=== PATIENT | female | born 1960 | race Caucasian/White ===

== ENCOUNTER 2020-02-25 21:29 | Emergency (ER) | payer OTHER ==
--- NOTE | 2020-02-25 22:35 | EDM.PDOC ---
ED HPI GENERAL MEDICAL PROBLEM - General Chief Complaint: Lower Extremity Injury/Pain Stated Complaint: FELL DOWN STEPS INJURING LEFT ANKLE Time Seen by Provider: 02/25/20 22:21 Source of Information: Reports: Patient, RN Notes Reviewed History Limitations: Reports: No Limitations - History of Present Illness INITIAL COMMENTS - FREE TEXT/NARRATIVE: Patient is a 59-year-old female who presents to the ED for evaluation of a left foot injury. Patient notes that she was going down the steps at her home, when she ended up getting the tip of her shoe caught on the carpet, this resulted in her falling down 2 or 3 steps. She notes that she thinks she hyperextended her left foot. This happened roughly 1 hour ago. Patient is complaining of severe pain to the midfoot portion. She denies any pain in her ankle, and states it hurts worse when she dorsiflexes her foot. She denies any sort of numbness or tingling into the extremity, and still can move toes in all range of motion without difficulty. She did take ibuprofen prior to coming to the ER, and states that this did help with the pain. She denies any other sick-like symptoms, fever/chills, nausea/vomiting/diarrhea, chest pain or shortness of breath. She does note that she has a previous sprain to this ankle, for which she was treating this with an ankle brace. Left Ankle Pain Score (Numeric/FACES): 7 - Related Data Allergies Allergy/AdvReac Type Severity Reaction Status Date / Time codeine Allergy Hallucinati Verified 02/25/20 21:48 ons Home Meds: Home Meds Metoprolol Succinate [Kapspargo Sprinkle] 12.5 mg PO DAILY 02/25/20 [History] Rosuvastatin [Crestor] 20 mg PO DAILY 02/25/20 [History] Past Medical History HEENT History: Reports: Impaired Vision Cardiovascular History: Reports: Arrhythmia, Other (See Below) Other Cardiovascular History: tachycardia - Past Surgical History Female Surgical History: Reports: Hysterectomy, Tubal Ligation Musculoskeletal Surgical History: Reports: Shoulder Surgery Social & Family History - Family History Family Medical History: Noncontributory - Tobacco Use Smoking Status *Q: Never Smoker Second Hand Smoke Exposure: No - Caffeine Use Caffeine Use: Reports: None - Recreational Drug Use Recreational Drug Use: No Review of Systems - Review of Systems Review Of Systems: Comprehensive ROS is negative, except as noted in HPI. ED EXAM, GENERAL - Physical Exam Exam: See Below Exam Limited By: No Limitations General Appearance: Alert, WD/WN, No Apparent Distress Respiratory/Chest: No Respiratory Distress, Lungs Clear, Normal Breath Sounds, No Accessory Muscle Use, Chest Non-Tender Cardiovascular: Normal Peripheral Pulses, Regular Rate, Rhythm, No Murmur Peripheral Pulses: 2+: Dorsalis Pedis (L), Dorsalis Pedis (R) Extremities: Normal Inspection, Normal Capillary Refill, Limited Range of Motion (of left foot d/t pain, most of her pain is on her midfoot area. pain worsens with dorsiflexion.) Neurological: Alert, Oriented, Normal Cognition, No Motor/Sensory Deficits Psychiatric: Normal Affect, Normal Mood Skin Exam: Warm, Dry, Intact, Normal Color, No Rash Course - Vital Signs Last Recorded V/S: Last Vital Signs Temp 98.6 F 02/25/20 21:40 Pulse 70 02/25/20 21:40 Resp 16 02/25/20 21:40 BP 174/90 H 02/25/20 21:40 Pulse Ox 97 02/25/20 21:40 - Orders/Labs/Meds Orders: Active Orders 24 hr Category Date Time Status Foot Comp Min 3V Lt [CR] Stat Exams 02/25/20 21:46 Taken DME for Discharge [COMM] Routine Oth 02/25/20 22:30 Ordered - Re-Assessments/Exams Free Text/Narrative Re-Assessment/Exam: 02/25/20 22:34 Patient presents to the ED for evaluation of her left foot injury. X-rays were obtained at time of triage, and this does demonstrate some possible avulsion fractures on the AP films, these were appreciated by myself and Dr. Cisse. Patient will be given a walking boot, and crutches, and will be required to be nonweightbearing until told otherwise by orthopedics. Patient understands this at this time. Departure - Departure Time of Disposition: 22:35 Disposition: Home, Self-Care 01 Condition: Good Clinical Impression: Avulsion fracture of bone, Left foot pain - Discharge Information *PRESCRIPTION DRUG MONITORING PROGRAM REVIEWED*: No *COPY OF PRESCRIPTION DRUG MONITORING REPORT IN PATIENT EZIO: No Instructions: Foot Pain Referrals: PCP,Not In Area [Primary Care Provider] - Forms: ED Department Discharge, ED Return to Work/School Form Additional Instructions: You have been evaluated in the ED for your left foot injury. Your x-ray demonstrated possible avulsion fractures on the top of your left foot. Please use ice as tolerated to the affected area. Please elevate the affected area as much as possible to help relieve swelling. You have been given a walking boot and crutches, you will need to stay nonweightbearing until you are evaluated by orthopedics. Although your foot/injury will be immobilized with a walking boot, you should not put weight on the extremity unless told otherwise by orthopedics. You may take Tylenol 500 mg or ibuprofen 600mg q6 hrs for pain relief. Please do so until you have a tolerable level of pain with activity. Do not exceed 4000mg Tylenol, Do not exceed 3200mg ibuprofen in a 24 hour time period. Please call Ortho for follow-up and further evaluation Dr. Rhodes is our orthopedic surgeon/specialist, his office number is [phone]. Please call and set up an appointment as soon as possible for further management. Please return to ED if your symptoms should change or worsen. Sepsis Event Note (ED) - Evaluation Sepsis Screening Result: No Definite Risk - Focused Exam Vital Signs: Vital Signs Temp Pulse Resp BP Pulse Ox 02/25/20 21:40 98.6 F 70 16 174/90 H 97 - My Orders Last 24 Hours: My Active Orders 02/25/20 21:46 Foot Comp Min 3V Lt [CR] Stat 02/25/20 22:30 DME for Discharge [COMM] Routine - Assessment/Plan Last 24 Hours: My Active Orders 02/25/20 21:46 Foot Comp Min 3V Lt [CR] Stat 02/25/20 22:30 DME for Discharge [COMM] Routine
--- NOTE | 2020-02-26 09:03 | CR ---
Left foot: 4 views of the left foot were obtained. Comparison: No previous foot study. Plantar spur is noted. Bony structures are slightly osteopenic. Small bony density is noted off the anterior and dorsal talus and off the dorsal navicular bone compatible with old avulsion injuries. No acute fracture, dislocation or other bony abnormality is seen. Impression: 1. Findings believed to be chronic as described above. 2. Nothing acute is appreciated. Diagnostic code #2 This report was dictated in MDT
== END 2020-02-25 23:18 | disposition home or self-care (01) ==
LOC: JD.ED 21:29
DX: S92.902A Unspecified fracture of left foot, initial encounter for closed fracture (principal); Z79.899 Other long term (current) drug therapy; Z88.5 Allergy status to narcotic agent; W10.9XXA Fall (on) (from) unspecified stairs and steps, initial encounter; Y92.009 Unspecified place in unspecified non-institutional (private) residence as the place of occurrence of the external cause
CPT/HCPCS: 73630-26-LT; 73630-LT; 99282; 99283-25

== ENCOUNTER 2020-04-25 20:57 | Emergency (ER) | payer OTHER ==
--- NOTE | 2020-04-25 21:32 | EDM.PDOC ---
ED HPI GENERAL MEDICAL PROBLEM - General Chief Complaint: Flank Pain Stated Complaint: POSSIBLE KIDNEY STONE Time Seen by Provider: 04/25/20 21:20 Source of Information: Reports: Patient History Limitations: Reports: No Limitations - History of Present Illness INITIAL COMMENTS - FREE TEXT/NARRATIVE: This is a 60-year-old female. Onset around 8 PM this evening with severe left flank pain. It seemed to wrap around the left flank but not go into the groin area. She did get nauseated with a severe pain but no vomiting and no diarrhea. She denies any fever or chills. When this was happening she felt like she was developing burning in the bladder and thought she might be developing a bladder infection. Because of the severe pain she comes to the ER. While sitting in th e patient room waiting to be seen the pain just suddenly stopped. She says she feels fine right now a little sore in the left flank but still feels like she is got some urinary symptoms. She does have a history of kidney stones 4 years ago on that left side. Left Flank Pain Score (Numeric/FACES): 10 - Related Data Allergies Allergy/AdvReac Type Severity Reaction Status Date / Time codeine Allergy Hallucinati Verified 04/25/20 21:12 ons Home Meds: Home Meds Metoprolol Succinate [Kapspargo Sprinkle] 12.5 mg PO DAILY 02/25/20 [History] Rosuvastatin [Crestor] 20 mg PO DAILY 02/25/20 [History] Past Medical History HEENT History: Reports: Impaired Vision Cardiovascular History: Reports: Arrhythmia, Other (See Below) Other Cardiovascular History: tachycardia - Past Surgical History Female Surgical History: Reports: Hysterectomy, Tubal Ligation Musculoskeletal Surgical History: Reports: Shoulder Surgery Social & Family History - Family History Family Medical History: Noncontributory - Tobacco Use Smoking Status *Q: Former Smoker Used Tobacco, but Quit: Yes Month/Year Tobacco Last Used: 2017 - Caffeine Use Caffeine Use: Reports: None - Recreational Drug Use Recreational Drug Use: No ED ROS GENERAL - Review of Systems Review Of Systems: See Below Constitutional: Denies: Fever, Chills HEENT: Reports: No Symptoms Respiratory: Reports: No Symptoms Cardiovascular: Reports: No Symptoms Endocrine: Reports: No Symptoms GI/Abdominal: Reports: Nausea. Denies: Abdominal Pain, Diarrhea, Vomiting : Reports: Dysuria, Flank Pain Musculoskeletal: Reports: No Symptoms Skin: Reports: No Symptoms Neurological: Reports: No Symptoms Psychiatric: Reports: No Symptoms Hematologic/Lymphatic: Reports: No Symptoms ED EXAM, RENAL/ - Physical Exam Exam: See Below Exam Limited By: No Limitations General Appearance: Alert, WD/WN, No Apparent Distress Eye Exam: Bilateral Eye: Normal Inspection Ears: Normal External Exam Nose: Normal Inspection Throat/Mouth: Normal Voice, No Airway Compromise Head: Normocephalic Neck: Supple Respiratory/Chest: No Respiratory Distress, Lungs Clear, Normal Breath Sounds Cardiovascular: Regular Rate, Rhythm, No Murmur GI/Abdominal: Soft, Non-Tender Back Exam: Normal Inspection, Full Range of Motion. No: CVA Tenderness (L), CVA Tenderness (R) Extremities: Normal Inspection, Normal Range of Motion Neurological: Alert, Oriented Psychiatric: Normal Affect, Normal Mood Skin Exam: Warm, Dry Course - Vital Signs Last Recorded V/S: Last Vital Signs Temp 98.1 F 04/25/20 21:06 Pulse 92 04/25/20 21:06 Resp 18 04/25/20 21:06 BP 225/111 H 04/25/20 21:06 Pulse Ox 97 04/25/20 21:06 - Orders/Labs/Meds Orders: Active Orders 24 hr Category Date Time Status Abdomen Pelvis wo Cont [CT] Stat Exams 04/25/20 21:29 Taken Labs: Laboratory Tests 04/25/20 04/25/20 Range/Units 21:40 22:48 WBC 6.93 (3.98-10.04) K/mm3 RBC 4.71 (3.98-5.22) M/mm3 Hgb 13.9 (11.2-15.7) gm/dl Hct 42.8 (34.1-44.9) % MCV 90.9 (79.4-94.8) fl MCH 29.5 (25.6-32.2) pg MCHC 32.5 (32.2-35.5) g/dl RDW Std Deviation 42.2 (36.4-46.3) fL Plt Count 362 (182-369) K/mm3 MPV 8.8 L (9.4-12.3) fl Neut % (Auto) 43.3 (34.0-71.1) % Lymph % (Auto) 41.7 (19.3-51.7) % Anderson % (Auto) 9.4 (4.7-12.5) % Eos % (Auto) 4.5 (0.7-5.8) Baso % (Auto) 1.0 (0.1-1.2) % Neut # (Auto) 3.00 (1.56-6.13) K/mm3 Lymph # (Auto) 2.89 (1.18-3.74) K/mm3 Anderson # (Auto) 0.65 H (0.24-0.36) K/mm3 Eos # (Auto) 0.31 (0.04-0.36) K/mm3 Baso # (Auto) 0.07 (0.01-0.08) K/mm3 Urine Color Yellow (Yellow) Urine Appearance Clear (Clear) Urine pH 6.0 (5.0-8.0) Ur Specific [place] > or = 1.030 (1.005-1.030) Urine Protein Negative (Negative) Urine Glucose (UA) Trace H (Negative) Urine Ketones Trace H (Negative) Urine Occult Blood 3+ H (Negative) Urine Nitrite Negative (Negative) Urine Bilirubin Negative (Negative) Urine Urobilinogen 1.0 (0.2-1.0) Ur Leukocyte Esterase Negative (Negative) Urine RBC 30-40 H (0-5) /hpf Urine WBC 0-5 (0-5) /hpf Ur Squamous Epith Cells 0-5 (0-5) /hpf Urine Bacteria Few (FEW) /hpf Urine Mucus Moderate H (FEW) /hpf - Radiology Interpretation Free Text/Narrative:: CT scan of the abdomen and pelvis show some mild inflammation and fat surrounding the left renal pelvis thought to be possibly a recently passed calculus there is no hydronephrosis. No other acute findings. - Re-Assessments/Exams Free Text/Narrative Re-Assessment/Exam: 04/25/20 23:43 I spoke to the patient regarding the CT scan results. I believe she has passed the stone at this time since her pain abruptly resolved. Her urine shows lots of red cells but no suggestion of infection. Departure - Departure Time of Disposition: 23:46 Disposition: Home, Self-Care 01 Condition: Good Clinical Impression: Renal colic on left side, Ureteral calculus, left - Discharge Information *PRESCRIPTION DRUG MONITORING PROGRAM REVIEWED*: Not Applicable *COPY OF PRESCRIPTION DRUG MONITORING REPORT IN PATIENT EZIO: Not Applicable Instructions: Kidney Stones, [id number] Referrals: PCP,None [Primary Care Provider] - Forms: ED Department Discharge Additional Instructions: Continue to drink lots of water to flush out the kidneys and the bladder, I believe you have passed your stone and will give you a strainer to use so every time you urinate you strain your urine so you can find the stone, follow-up with your family doctor this coming week for recheck, return to the ER if needed Sepsis Event Note (ED) - Evaluation Sepsis Screening Result: No Definite Risk - Focused Exam Vital Signs: Vital Signs Temp Pulse Resp BP Pulse Ox 04/25/20 21:06 98.1 F 92 18 225/111 H 97 - My Orders Last 24 Hours: My Active Orders 04/25/20 21:29 Abdomen Pelvis wo Cont [CT] Stat - Assessment/Plan Last 24 Hours: My Active Orders 04/25/20 21:29 Abdomen Pelvis wo Cont [CT] Stat
--- NOTE | 2020-05-26 16:10 | CT ---
"PROCEDURE INFORMATION: Exam: CT Abdomen And Pelvis Without Contrast Exam date and time: 04/25/2020 9:48 PM Age: 60 years old Clinical indication: Abdominal pain; Flank; Left; Prior surgery; Surgery date: 6+ months; Surgery type: Hysterectomy TECHNIQUE: Imaging protocol: Computed tomography of the abdomen and pelvis without contrast. COMPARISON: No relevant prior studies available. FINDINGS: Liver: Decreased attenuation is seen in the liver compatible with fatty infiltration. Nonspecific 2.5 cm hypodense lesion in the right lobe consistent with a cyst. Gallbladder and bile ducts: Unremarkable. No ductal dilation. Pancreas: Normal. No ductal dilation. Spleen: Normal. No splenomegaly. Adrenal glands: Normal. No mass. Kidneys and ureters: Very small, punctate left upper pole calculus. Minimal left hydronephrosis, no left ureteral calculus. Unremarkable right kidney. Stomach and bowel: No acute findings. No obstruction. No mucosal thickening. Appendix: No evidence of appendicitis. Intraperitoneal space: Unremarkable. No free air. No significant fluid collection. Vasculature: No abdominal aortic aneurysm. Lymph nodes: No significant adenopathy. Urinary bladder: Unremarkable as visualized. Reproductive: Hysterectomy. Bones/joints: No acute findings. Soft tissues: Unremarkable. IMPRESSION: ASTRID KLEIN | Final Radiology Report CONFIDENTIALITY STATEMENT This report is intended only for use by the referring physician, and only in accordance with law. If you received this in error, call [phone]. Page 2 of 2 Minimal left hydronephrosis, small left renal calculus. The findings may reflect recent stone passage, the differential includes pyelonephritis. Correlate with urinalysis. Thank you for allowing us to participate in the care of your patient. Dictated and Authenticated by: King Damon MD 05/26/2020 5:01 PM Central Time ([place] & [place]) [facility]"
== END 2020-04-26 | disposition home or self-care (01) ==
LOC: JD.ED 20:57
DX: N20.1 Calculus of ureter (principal); R11.0 Nausea; Z88.5 Allergy status to narcotic agent; Z98.51 Tubal ligation status; Z87.891 Personal history of nicotine dependence; Z90.710 Acquired absence of both cervix and uterus
CPT/HCPCS: 36415; 74176; 74176-26; 81001; 85025; 99282; 99284-25